=== PATIENT | female | born 1980 | race Hispanic/Latino ===

== ENCOUNTER 2017-01-11 12:10 | Emergency (ER) | payer MEDICAID ==
[2017-01-11 12:24] VITALS: BP 138/93; PULSE 57; RESP 18; TEMP 97.6; O2SAT 99
--- NOTE | 2017-01-11 13:04 | ED PDOC ---
Lower Extremity Pain/Injury Time Seen by Provider: 01/11/17 12:40 Chief Complaint (Nursing): Trauma Chief Complaint (Provider): Left thigh injury History Per: Patient History/Exam Limitations: no limitations Onset/Duration Of Symptoms: Days (x2) Current Symptoms Are (Timing): Still Present Additional Complaint(s): Adelia Franks is a 36 year old female presenting to the ED for an evaluation of an injury to the left lateral aspect of her thigh occurring 2 days prior to arrival. The patient states she bumped her thigh against a paper toilet bone and sustained a bruise. 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 She states having to call out of work to leave early due to the pain. She denies left calf tenderness or groin tenderness. The patient also reports the swelling has decreased in size. Of note, the patient's Tetanus is not up to date. PMD: Non H Provider Past Medical History Reviewed: Historical Data, Nursing Documentation, Vital Signs Vital Signs: Last Vital Signs Temp 97.6 F 01/11/17 12:20 Pulse 57 L 01/11/17 12:20 Resp 18 01/11/17 12:20 BP 138/93 H 01/11/17 12:20 Pulse Ox 99 01/11/17 12:20 - Medical History PMH: No Chronic Diseases - Surgical History Surgical History: Tonsillectomy - Family History Family History: States: Unknown Family Hx - Social History Current smoker - smoking cessation education provided: Yes Alcohol: Social Drugs: Denies - Immunization History Hx Tetanus Toxoid Vaccination: No Hx Influenza Vaccination: No Hx Pneumococcal Vaccination: No - Home Medications Home Medications: Ambulatory Orders Medication Instructions Recorded Diclofenac Sodium 10 - 20 gm TP BID #1 gel..gram. NS 01/11/17 - Allergies Allergies/Adverse Reactions: Allergies Allergy/AdvReac Type Severity Reaction Status Date / Time chocolate flavor Allergy ITCHING Verified 01/11/17 12:19 Review of Systems ROS Statement: Except As Marked, All Systems Reviewed And Found Negative Musculoskeletal: Positive for: Other (swelling decreasing in size). Negative for: Leg Pain (no left calf tenderness; no groin tenderness ) Skin: Positive for: Bruising (bruising to left lateral aspect of thigh; pain to the area) Physical Exam - Reviewed Nursing Documentation Reviewed: Yes Vital Signs Reviewed: Yes - Physical Exam Appears: Positive for: Non-toxic, No Acute Distress Head Exam: Positive for: ATRAUMATIC, NORMOCEPHALIC Extremity: Positive for: Other (2x3 inches of bruising noted to left lateral aspect of left thigh). Negative for: Calf Tenderness (to left lower extremity) , Swelling (to left lower extremity) Neurologic/Psych: Positive for: Alert, Oriented - ECG O2 Sat by Pulse Oximetry: 99 (RA) Pulse Ox Interpretation: Normal Medical Decision Making Medical Decision Making: Time: 12:40 Impression: Bruising to left lateral aspect of left thigh Plan: * Patient will receive a work note. Advised to apply ice and rest. Will give cream for pain control. * Tetanus Scribe Attestation: Documented by Carrie Sam, acting as a scribe for Marisela Burrell PA-C. Provider Scribe Attestation: All medical record entries made by the Scribe were at my direction and personally dictated by me. I have reviewed the chart and agree that the record accurately reflects my personal performance of the history, physical exam, medical decision making, and the department course for this patient. I have also personally directed, reviewed, and agree with the discharge instructions and disposition. Disposition - Clinical Impression Clinical Impression: Hematoma - Disposition Referrals: [facility] [Outside] Disposition Time: 12:59 Condition: STABLE Prescriptions: Diclofenac Sodium 10 - 20 gm TP BID #1 gel..gram. NS Instructions: Hematoma (ED) Forms: [employer] (Occitan), [facility] ED School/Work Excuse
== END 2017-01-11 13:09 | disposition home or self-care (01) ==
LOC: H.ER 12:10
DX: S70.12XA Contusion of left thigh, initial encounter (principal); W22.09XA Striking against other stationary object, initial encounter; Y93.9 Activity, unspecified

== ENCOUNTER 2017-02-13 00:51 | Emergency (ER) | payer SELFPAY ==
[2017-02-13 01:16] VITALS: BMI 30.5
[2017-02-13 01:18] VITALS: BP 156/96; PULSE 87; RESP 16; TEMP 98.4; O2SAT 99
[2017-02-13] MEDS ORDERED: Sodium Chloride 0.9% 1,000 ML IV STA (01:18)
--- NOTE | 2017-02-13 01:24 | ED PDOC ---
HPI: Headache Time Seen by Provider: 02/13/17 01:00 Chief Complaint (Nursing): Headache Chief Complaint (Provider): Headache History Per: Patient History/Exam Limitations: no limitations Onset/Duration Of Symptoms: Days (x 3) Current Symptoms Are (Timing): Still Present Associated Symptoms: Photophobia, Nausea Additional Complaint(s): Adelia is a 36 y/o female with a history of migraine who presents to the ED c/ o a migraine that started Friday. She states the headache went away but started again recently, so she took Motrin around 11. Patient denies fever, chest pain, shortness of breath, or other medical complaints. She states that this is a typical migraine for her. PMD: None Provided Past Medical History Reviewed: Historical Data, Nursing Documentation, Vital Signs Vital Signs: Last Vital Signs Temp 98.4 F 02/13/17 01:16 Pulse 87 02/13/17 01:16 Resp 16 02/13/17 01:16 BP 156/96 H 02/13/17 01:16 Pulse Ox 99 02/13/17 01:16 - Medical History PMH: Migraine - Surgical History Surgical History: Tonsillectomy, - Family History Family History: States: Unknown Family Hx - Social History Current smoker - smoking cessation education provided: Yes (occasional) Ex-Smoker (has not smoked in the last 12 months): No Alcohol: Occasional Drugs: Denies - Immunization History Hx Tetanus Toxoid Vaccination: No Hx Influenza Vaccination: No Hx Pneumococcal Vaccination: No - Home Medications Home Medications: Ambulatory Orders Medication Instructions Recorded Diclofenac Sodium 10 - 20 gm TP BID #1 gel..gram. NS 01/11/17 - Allergies Allergies/Adverse Reactions: Allergies Allergy/AdvReac Type Severity Reaction Status Date / Time chocolate flavor Allergy ITCHING Verified 01/11/17 12:19 lactose AdvReac DIARRHEA Verified 02/13/17 01:16 Review of Systems ROS Statement: Except As Marked, All Systems Reviewed And Found Negative Constitutional: Negative for: Fever Eyes: Positive for: Other (Photophobia) Cardiovascular: Negative for: Chest Pain Respiratory: Negative for: Shortness of Breath Gastrointestinal: Positive for: Nausea Neurological: Positive for: Headache Physical Exam - Reviewed Nursing Documentation Reviewed: Yes Vital Signs Reviewed: Yes - Physical Exam Appears: Positive for: Well, Non-toxic, No Acute Distress Head Exam: Positive for: ATRAUMATIC, NORMAL INSPECTION, NORMOCEPHALIC Skin: Positive for: Normal Color, Warm, Dry Eye Exam: Positive for: Normal appearance, EOMI, PERRL. Negative for: Nystagmus ENT: Positive for: Normal ENT Inspection Neck: Positive for: Normal, Painless ROM, Supple Cardiovascular/Chest: Positive for: Regular Rate, Rhythm. Negative for: Murmur Respiratory: Positive for: Normal Breath Sounds. Negative for: Respiratory Distress Gastrointestinal/Abdominal: Positive for: Normal Exam, Bowel Sounds, Soft. Negative for: Tenderness Back: Positive for: Normal Inspection Extremity: Positive for: Normal ROM. Negative for: Pedal Edema, Deformity Neurologic/Psych: Positive for: Alert, relations manager II-XII, Oriented, Cerebellar Tests. Negative for: Motor/Sensory Deficits - Laboratory Results Result Diagrams: 02/13/17 01:40 02/13/17 01:40 - ECG O2 Sat by Pulse Oximetry: 99 (RA) Pulse Ox Interpretation: Normal Medical Decision Making Medical Decision Making: Time: 1:16 Initial Impression: Headache- chronic Initial Plan: --CMP --CBC --Reglan --Zofran Time: 3:07 --Toradol patient feels better upon reevalaution, and sintructed to follow up iwht out neurolgost. agreeable Scribe Attestation: Documented by Alex Vazquez, acting as a scribe for Shyay Lieberman MD Provider Scribe Attestation: All medical record entries made by the Scribe were at my direction and personally dictated by me. I have reviewed the chart and agree that the record accurately reflects my personal performance of the history, physical exam, medical decision making, and the department course for this patient. I have also personally directed, reviewed, and agree with the discharge instructions and disposition. Disposition - Clinical Impression Clinical Impression: Migraine - Patient ED Disposition Is Patient to be Admitted: No Counseled Patient/Family Regarding: Studies Performed, Diagnosis, Need For Followup - Disposition Referrals: [facility]ending [facility] [Outside] [facility] [Outside] Andrey Gaytan MD [Staff Provider] - Disposition: Routine/Home Disposition Time: 03:00 Condition: IMPROVED Additional Instructions: follow up with your primary doctor in 1-2 days and with neurologist return to the ED with any worsening or concerning symptoms Instructions: Migraine Headache (ED), Acute Headache (ED) Forms: [email or web address] (Italian), [facility] ED School/Work Excuse
[2017-02-13 01:59] LABS: BASO % 0.4 % (0.0-2.0); EOS # 0.1 K/uL (0.0-0.7); EOS % 0.6 % (0.0-4.0); HEMATOCRIT 40.2 % (34.0-47.0); LYMPH # 1.6 K/uL (1.0-4.3); LYMPH % 17.7 % (20.0-40.0); MEAN CELL VOLUME 85.3 fl (81.0-99.0); MEAN CORPUSCULAR HEMOGLOBIN 28.6 pg (27.0-31.0); MEAN CORPUSCULAR HGB CONC 33.6 g/dL (33.0-37.0); MEAN PLATELET VOLUME 7.7 fl (7.2-11.7); MONO # 0.8 K/uL (0.0-0.8); MONO % 9.5 % (0.0-10.0); NEUT # 6.3 K/uL (1.8-7.0); NEUT % 71.8 % (50.0-75.0); RED CELL DISTRIBUTION WIDTH 12.3 % (11.5-14.5); WHITE BLOOD COUNT 8.8 K/uL (4.8-10.8)
[2017-02-13 02:05] LABS: ALB/GLOB RATIO 1.2 (1.0-2.1); ALKALINE PHOSPHATASE 60 U/L (38-126); ALT/SGPT 33 U/L (9-52); AST/SGOT 43 U/L (14-36); BILIRUBIN,TOTAL 1.1 mg/dl (0.2-1.3); BLOOD UREA NITROGEN 15 mg/dl (7-17); CALCIUM 8.7 mg/dL (8.4-10.2); CARBON DIOXIDE 25 mmol/L (22-30); CHLORIDE 99 mmol/L (98-107); GFR AFRICAN-AMERICAN > 60; GLUCOSE,RANDOM 150 mg/dL (65-105); POTASSIUM 4.8 MMOL/L (3.6-5.0); SODIUM 132 mmol/l (132-148); TOTAL PROTEIN 7.9 G/DL (6.3-8.2)
== END 2017-02-13 04:52 | disposition home or self-care (01) ==
LOC: H.ER 00:51
DX: G43.909 Migraine, unspecified, not intractable, without status migrainosus (principal)
CPT/HCPCS: 80053; 85025; 96374; 99281; J1885; J2405; J2765; J7040